=== PATIENT | female | born 1950 | race Caucasian/White ===

== ENCOUNTER → 2019-08-29 14:32 | Outpatient (CLI) | payer MEDICARE ==
[2019-08-29 22:38] LABS: HEMATOCRIT 41.2 % (36.0-48.0); HEMOGLOBIN 12.9 g/dL (12-16); LYMPHOCYTES 21.7 % (15-50); MCH 28.2 pg (26.0-34.0); MCHC 31.3 g/dL (31.0-37.0); MEAN PLATELET VOLUME 11.1 fL (7.4-10.4); NEUTROPHILS 72.9 % (40-80); PLATELET COUNT 295 10x3/uL (130-400); RBC 4.58 10x6/uL (4.00-5.40); RDW 15.1 % (11.5-14.5); WBC 9.1 10x3/uL (4.8-10.8)
[2019-08-29 23:19] LABS: T4 THYROXIN - FREE 0.92 ng/dL (0.76-1.46); THYROID STIMULATING HORMONE 0.97 uIU/mL (0.36-3.74)
[2019-08-31 08:11] LABS: T3 - FREE 3.5 pg/mL (2.0-4.4)
[2019-08-31 11:09] LABS: ANA REFLEX - DBL STRANDED DNA <1 IU/mL (0-9); ANA REFLEX - DIRECT Negative (Negative); ANA REFLEX - SMITH AB <0.2 AI (0.0-0.9)
== END | disposition home or self-care (01) ==
LOC: D.LABREF 14:32
PROVIDERS: ATTEND Internal Medicine Pulmonary Disease
DX: R53.83 Other fatigue (principal)